=== PATIENT | female | born 1955 | race Caucasian/White ===

== ENCOUNTER → 2018-09-09 | Outpatient (CLI) | payer OTHER ==
[~2018-09-09] MED LIST: ADVAIR 250-501 EACH IH; ADVIL PO; AMITRIP CDP PO; CYMBALTA60 MG PO; IRON325 PO; NEURONTIN 300300 M1 PO; NEXIUM40 MG PO; QUESTRAN PACKET4 GM PO; TRAMADOL 50 MG50 MG PO; TYLENOL EX-STR500 M2 PO; ZANTAC 150MG T150 M1 PO; ZANTAC PO
== END ==
LOC: M.RAD 08-27 11:47
DX: Z12.31 Encounter for screening mammogram for malignant neoplasm of breast (principal); M85.89 Other specified disorders of bone density and structure, multiple sites; Z78.0 Asymptomatic menopausal state